=== PATIENT | male | born 1980 | race Caucasian/White ===

== ENCOUNTER 2022-11-09 16:12 | Emergency (ER) | payer MEDICAID ==
[2022-11-09] MEDS ORDERED: diphenhydrAMINE 50 MG/ML SDV ONE (16:22)
[2022-11-09] MEDS ORDERED: EPINEPHrine 1 MG/1 ML Amp ONE (16:22)
[2022-11-09] MEDS ORDERED: methylPREDNISolone Sodium Succinate 125 MG/2 ML SDV ONE (16:23)
[2022-11-09] MEDS ORDERED: EPINEPHrine 1 MG/ML SDV SUBCUT ONE (16:25)
[2022-11-09] MEDS ORDERED: diphenhydrAMINE 50 MG/ML SDV IVPUSH ONE (16:25)
[2022-11-09] MEDS ORDERED: methylPREDNISolone Sodium Succinate 125 MG/2 ML SDV IVPUSH ONE (16:25)
[2022-11-09 19:13] VITALS: BP 117/68; PULSE 79
[2022-11-09] MEDS ORDERED: Sodium Chloride 0.9% 10 ML Syringe FLUSH PRN (19:31)
== END 2022-11-09 17:09 | disposition home or self-care (01) ==
LOC: FB.ED 16:12
DX: T63.441A Toxic effect of venom of bees, accidental (unintentional), initial encounter (principal); J45.901 Unspecified asthma with (acute) exacerbation; Z86.16 Personal history of COVID-19; Z79.899 Other long term (current) drug therapy
CPT/HCPCS: 96372; 96374; 96375; 99284; J0171; J1200; J2930; J3490